=== PATIENT | male | born 1970 | race Caucasian/White ===

== ENCOUNTER 2019-01-06 20:49 | Emergency (ER) | payer OTHER, MEDICAID ==
[~2019-01-06] VITALS: Ht 177.8 cm; Wt 102.1 kg
[2019-01-06 21:04] VITALS: BP_SYST 162
[2019-01-06] MEDS ORDERED: NEOMY SULF/BACITRAC ZN/POLY 28 GM OINT..GM. TP ONE (22:15)
[2019-01-06] MEDS ORDERED: IBUPROFEN 800 MG TABLET PO ONE (22:15)
[2019-01-06] MEDS ORDERED: BACITRACIN 1 GM OINT TP ONE ×2 (22:15→22:19)
[2019-01-06] MEDS ORDERED: SULFAMETHOXAZOLE/TRIMETHOPR DS 1 TABLET PO ONE (22:15)
[2019-01-06 22:30] VITALS: BP_SYST 154
== END 2019-01-06 22:30 | disposition home or self-care (01) ==
LOC: SED 20:49
DX: L03.116 Cellulitis of left lower limb (principal); L03.115 Cellulitis of right lower limb; E11.9 Type 2 diabetes mellitus without complications; I10 Essential (primary) hypertension; Z91.013 Allergy to seafood; Z88.8 Allergy status to other drugs, medicaments and biological substances
CPT/HCPCS: 99283

== ENCOUNTER 2019-07-25 14:28 | Inpatient (IN) | payer MEDICAID, OTHER ==
[~2019-07-25] VITALS: Ht 177.8 cm; Wt 94.8 kg
[2019-07-25] MEDS ORDERED: NACL 0.9% 1,000 ML IV ONE (14:45)
[2019-07-25] MEDS ORDERED: INSULIN REGULAR, HUMAN 10 UNITS/0.1 ML INJ IVP ONE (14:45)
[2019-07-25] MEDS ORDERED: LORazepam 2 MG/ML VIAL IVP ONE ×2 (14:45→15:15)
[2019-07-25 14:52] VITALS: BP_SYST 120
[2019-07-25] MEDS ORDERED: LORazepam 2 MG/ML VIAL ONE (14:59)
[2019-07-25] MEDS ORDERED: levETIRAcetam 1,000 MG in NS 100 ML IV ONE (15:15)
[2019-07-25 15:30] LABS: BASOPHILS % (AUTO) 0.4 % (0.0-2.0); EOSINOPHILS # (AUTO) 0.1 K/uL (0.0-0.4); LYMPHOCYTES # (AUTO) 1.8 K/uL (1.0-5.5); MEAN CORPUSCULAR HGB CONC 34 % (32-36); NEUTROPHILS # (AUTO) 4.4 K/uL (1.8-7.7); WHITE BLOOD COUNT (AUTO) 6.7 K/uL (4.8-10.8)
[2019-07-25 15:35] LABS: EOSINOPHILS % (AUTO) 1.2 % (0.0-4.0); HEMATOCRIT 46.4 % (36-54); HEMOGLOBIN 15.6 g/dL (14.0-18.0); LYMPHOCYTES % (AUTO) 26.3 % (20.5-51.5); MEAN CORPUSCULAR HEMOGLOBIN 30 pg (27-31); MEAN CORPUSCULAR VOLUME 89 fL (79.0-98.0); MONOCYTES # (AUTO) 0.5 K/uL (0.0-1.0); MONOCYTES % (AUTO) 6.8 % (1.7-9.3); NEUTROPHILS % (AUTO) 65.3 % (40.0-70.0); PLATELET COUNT (AUTO) 308 K/uL (130-430); RED BLOOD CELL COUNT(AUTO) 5.21 MIL/uL (4.2-6.2); RED CELL DISTRIBUTION WIDTH 13.1 % (9.0-15.0)
[2019-07-25 15:36] LABS: CALCIUM 8.6 mg/dL (8.4-11.0); CREATININE 0.93 mg/dL (0.55-1.30); POTASSIUM 3.7 mmol/L (3.5-5.1)
[2019-07-25 15:37] LABS: INR 0.9 (0.80-1.20); PROTHROMBIN TIME 9.3 SECS (9.5-12.5)
[2019-07-25 15:38] LABS: ALBUMIN 3.3 g/dL (3.4-4.8); TOTAL BILIRUBIN 0.6 mg/dL (0.0-1.0)
[2019-07-25] MEDS ORDERED: ATOR40TA68 PO (15:43)
[2019-07-25] MEDS ORDERED: METO-540 PO (15:43)
[2019-07-25] MEDS ORDERED: METF-510 PO (15:43)
[2019-07-25] MEDS ORDERED: IBUP-2101 PO (15:43)
[2019-07-25] MEDS ORDERED: NITR0.4T47 SL (15:43)
[2019-07-25] MEDS ORDERED: PREG100C PO (15:44)
[2019-07-25] MEDS ORDERED: ASPI-524 PO (15:44)
[2019-07-25] MEDS ORDERED: LISI10TA PO (15:44)
[2019-07-25] MEDS ORDERED: SERT-131 PO (15:44)
[2019-07-25 16:22] LABS: BARBITURATE, URINE NEGATIVE (NEG <=200); BENZODIAZEPINE, URINE NEGATIVE (NEG <=150); CANNABINOID, URINE POSITIVE (NEG <=50); COCAINE, URINE NEGATIVE (NEG <=150); METHAMPHETAMINES SCREEN,URINE NEGATIVE (NEG <=500); OPIATE, URINE NEGATIVE (NEG <=100); PHENCYCLIDINE SCREEN,URINE NEGATIVE (NEG <=25); UR TRICYCLIC ANTIDEPRESSANTS NEGATIVE (NEG <=300); URINE AMPHETAMINE NEGATIVE (NEG <=500); URINE METHADONE NEGATIVE (NEG <=200); URINE OXYCODONE SCREEN NEGATIVE (NEG <=100); URINE PROPOXYPHENE SCREEN NEGATIVE (NEG <=300)
[2019-07-25 19:00] VITALS: BP_SYST 120
[2019-07-25] MEDS ORDERED: ACETAMINOPHEN 325 MG TABLET PO PRN (19:00)
[2019-07-25] MEDS ORDERED: NITROGLYCERIN 0.4 MG TAB.SUBL SL PRN (19:00)
[2019-07-25] MEDS ORDERED: ACETAMINOPHEN 325 MG TABLET PO SCH (19:00)
[2019-07-25] MEDS ORDERED: ONDANSETRON HCL 4 MG/2 ML VIAL IVP PRN (19:00)
[2019-07-25] MEDS ORDERED: HYDROcodone/ACETAMIN 5-325 MG TAB (NORCO/ VICODIN) PO PRN (19:00)
[2019-07-25 20:00] VITALS: BP_SYST 128
[2019-07-25 21:00] VITALS: BP_SYST 125
[2019-07-25] MEDS: HYDROcodone/ACETAMIN 10-325 MG TAB PO PRN (21:26)
[2019-07-25] MEDS: ATORVASTATIN 20 MG TABLET PO SCH (21:26)
[2019-07-25] MEDS: INSULIN REGULAR, HUMAN 100 UNITS/ML, 10 ML VIAL (humuLIN R) SUBCUT PRN (21:35)
[2019-07-25] MEDS: NORMAL SALINE 5 ML DISP.SYRIN IVF SCH (21:37)
[2019-07-25 22:00] VITALS: BP_SYST 127
[2019-07-25 23:00] VITALS: BP_SYST 123
[2019-07-26] VITALS (24 sets, daily range): BP systolic 96–145
[2019-07-26] MEDS: LORazepam 2 MG/ML VIAL IVP PRN ×2 (01:26→06:40)
[2019-07-26 05:52] LABS: BASOPHILS % (AUTO) 0.7 % (0.0-2.0); EOSINOPHILS # (AUTO) 0.1 K/uL (0.0-0.4); EOSINOPHILS % (AUTO) 2.2 % (0.0-4.0); HEMATOCRIT 42.5 % (36-54); HEMOGLOBIN 14.4 g/dL (14.0-18.0); LYMPHOCYTES # (AUTO) 2.4 K/uL (1.0-5.5); LYMPHOCYTES % (AUTO) 40.3 % (20.5-51.5); MEAN CORPUSCULAR HEMOGLOBIN 30 pg (27-31); MEAN CORPUSCULAR HGB CONC 34 % (32-36); MEAN CORPUSCULAR VOLUME 89 fL (79.0-98.0); MONOCYTES # (AUTO) 0.3 K/uL (0.0-1.0); MONOCYTES % (AUTO) 5.7 % (1.7-9.3); NEUTROPHILS % (AUTO) 51.1 % (40.0-70.0); PLATELET COUNT (AUTO) 255 K/uL (130-430); RED BLOOD CELL COUNT(AUTO) 4.79 MIL/uL (4.2-6.2); RED CELL DISTRIBUTION WIDTH 13.3 % (9.0-15.0); WHITE BLOOD COUNT (AUTO) 5.9 K/uL (4.8-10.8)
[2019-07-26 06:09] LABS: ALBUMIN 2.6 g/dL (3.4-4.8); CREATININE 0.63 mg/dL (0.55-1.30); PHOSPHORUS 3.7 mg/dL (2.7-4.5); POTASSIUM 3.8 mmol/L (3.5-5.1); TOTAL BILIRUBIN 0.6 mg/dL (0.0-1.0)
[2019-07-26] MEDS: INSULIN REGULAR, HUMAN 100 UNITS/ML, 10 ML VIAL (humuLIN R) SUBCUT PRN ×4 (06:31→20:31)
[2019-07-26] MEDS: HYDROcodone/ACETAMIN 10-325 MG TAB PO PRN ×2 (06:32→10:49)
[2019-07-26] MEDS: NORMAL SALINE 5 ML DISP.SYRIN IVF SCH ×3 (06:40→20:31)
[2019-07-26] MEDS ORDERED: FLU VACC QS2019-20 36MOS UP/PF 60 MCG/0.5 ML SYRINGE I.M. PRN (09:00)
[2019-07-26] MEDS: ASPIRIN 81 MG TAB.CHEW PO SCH (09:25)
[2019-07-26] MEDS: METOPROLOL SUCCINATE 25 MG TAB.SR.24H (TOPROL XL) PO SCH ×2 (09:28→20:26)
[2019-07-26] MEDS: LISINOPRIL 10 MG TABLET (PRINIVIL) PO SCH (09:28)
[2019-07-26] MEDS: SERTRALINE HCL 50 MG TABLET PO SCH (09:29)
[2019-07-26] MEDS ORDERED: GLUCOSE 15 GM GEL (in 37.5 GM TUBE) PO PRN (11:15)
[2019-07-26] MEDS ORDERED: DEXTROSE 50%-WATER 50 ML DISP.SYRIN IVP PRN (11:15)
[2019-07-26] MEDS ORDERED: D5W 1,000 ML IV PRN (11:15)
[2019-07-26] MEDS ORDERED: PREGABALIN 25 MG CAPSULE (LYRICA) PO ONE (11:15)
[2019-07-26] MEDS: MORPHINE 4 MG/ML INJ. SYRINGE IVP PRN ×2 (18:41→22:47)
[2019-07-26] MEDS: ATORVASTATIN 20 MG TABLET PO SCH (20:25)
[2019-07-27] VITALS (12 sets, daily range): BP systolic 94–129
[2019-07-27] MEDS: LORazepam 2 MG/ML VIAL IVP PRN (01:51)
[2019-07-27] MEDS: MORPHINE 4 MG/ML INJ. SYRINGE IVP PRN ×4 (05:07→22:24)
[2019-07-27] MEDS: NORMAL SALINE 5 ML DISP.SYRIN IVF SCH ×3 (05:57→20:56)
[2019-07-27 06:01] LABS: BASOPHILS # (AUTO) 0.1 K/uL (0.0-0.2); BASOPHILS % (AUTO) 0.8 % (0.0-2.0); EOSINOPHILS # (AUTO) 0.1 K/uL (0.0-0.4); EOSINOPHILS % (AUTO) 2.1 % (0.0-4.0); HEMATOCRIT 44.9 % (36-54); HEMOGLOBIN 15.2 g/dL (14.0-18.0); LYMPHOCYTES # (AUTO) 1.9 K/uL (1.0-5.5); LYMPHOCYTES % (AUTO) 26.5 % (20.5-51.5); MEAN CORPUSCULAR HEMOGLOBIN 30 pg (27-31); MEAN CORPUSCULAR HGB CONC 34 % (32-36); MEAN CORPUSCULAR VOLUME 88 fL (79.0-98.0); MONOCYTES # (AUTO) 0.4 K/uL (0.0-1.0); MONOCYTES % (AUTO) 5.7 % (1.7-9.3); NEUTROPHILS # (AUTO) 4.6 K/uL (1.8-7.7); NEUTROPHILS % (AUTO) 64.9 % (40.0-70.0); PLATELET COUNT (AUTO) 245 K/uL (130-430); RED BLOOD CELL COUNT(AUTO) 5.09 MIL/uL (4.2-6.2); RED CELL DISTRIBUTION WIDTH 13.2 % (9.0-15.0); WHITE BLOOD COUNT (AUTO) 7.1 K/uL (4.8-10.8)
[2019-07-27] MEDS: INSULIN REGULAR, HUMAN 100 UNITS/ML, 10 ML VIAL (humuLIN R) SUBCUT PRN ×4 (06:08→20:58)
[2019-07-27 06:33] LABS: ALANINE AMINOTRANSFERASE 14 U/L (12-78); ALBUMIN 2.6 g/dL (3.4-4.8); ANION GAP 8 (5-15); ASPARTATE AMINOTRANSFERASE 15 U/L (10-37); CALCIUM 8.4 mg/dL (8.4-11.0); CHLORIDE 102 mmol/L (98-107); CREATININE 0.69 mg/dL (0.55-1.30); GLUCOSE 212 mg/dL (70-99); POTASSIUM 4.2 mmol/L (3.5-5.1); SODIUM SERUM 136 mmol/L (136-145); TOTAL BILIRUBIN 0.5 mg/dL (0.0-1.0); UREA NITROGEN, BLOOD 16 mg/dL (8-21)
[2019-07-27 07:20] LABS: GFR AFRICAN AMERICAN 157 mL/min (>90)
[2019-07-27 07:38] LABS: CHOLESTEROL 147 mg/dL (<200); HDL CHOLESTEROL 41 mg/dL (>45); LDL CHOLESTEROL 80 mg/dL (<100); TRIGLYCERIDES 121 mg/dL (30-150)
[2019-07-27] MEDS: ASPIRIN 81 MG TAB.CHEW PO SCH (09:26)
[2019-07-27] MEDS: PREGABALIN 25 MG CAPSULE (LYRICA) PO SCH (09:27)
[2019-07-27] MEDS: LISINOPRIL 10 MG TABLET (PRINIVIL) PO SCH (09:28)
[2019-07-27] MEDS: METOPROLOL SUCCINATE 25 MG TAB.SR.24H (TOPROL XL) PO SCH ×2 (09:29→20:55)
[2019-07-27] MEDS: SERTRALINE HCL 50 MG TABLET PO SCH (09:29)
[2019-07-27] MEDS: HYDROcodone/ACETAMIN 10-325 MG TAB PO PRN ×2 (17:04→20:54)
[2019-07-27] MEDS: ATORVASTATIN 20 MG TABLET PO SCH (20:53)
[2019-07-27] MEDS: MUPIROCIN 1 GM OIN.PF.APP NS SCH (21:00)
[2019-07-28] MEDS: MORPHINE 4 MG/ML INJ. SYRINGE IVP PRN ×6 (02:26→21:48)
[2019-07-28] MEDS: NORMAL SALINE 5 ML DISP.SYRIN IVF SCH ×3 (05:17→21:34)
[2019-07-28] MEDS: INSULIN REGULAR, HUMAN 100 UNITS/ML, 10 ML VIAL (humuLIN R) SUBCUT PRN ×4 (06:09→21:37)
[2019-07-28 07:17] LABS: BASOPHILS % (AUTO) 0.7 % (0.0-2.0); EOSINOPHILS # (AUTO) 0.2 K/uL (0.0-0.4); EOSINOPHILS % (AUTO) 2.5 % (0.0-4.0); HEMOGLOBIN 14.5 g/dL (14.0-18.0); LYMPHOCYTES # (AUTO) 1.9 K/uL (1.0-5.5); LYMPHOCYTES % (AUTO) 29.5 % (20.5-51.5); MEAN CORPUSCULAR HEMOGLOBIN 30 pg (27-31); MEAN CORPUSCULAR HGB CONC 34 % (32-36); MEAN CORPUSCULAR VOLUME 89 fL (79.0-98.0); MONOCYTES # (AUTO) 0.4 K/uL (0.0-1.0); MONOCYTES % (AUTO) 6.4 % (1.7-9.3); NEUTROPHILS % (AUTO) 60.9 % (40.0-70.0); PLATELET COUNT (AUTO) 231 K/uL (130-430); RED BLOOD CELL COUNT(AUTO) 4.83 MIL/uL (4.2-6.2); RED CELL DISTRIBUTION WIDTH 13.2 % (9.0-15.0); WHITE BLOOD COUNT (AUTO) 6.5 K/uL (4.8-10.8)
[2019-07-28 08:01] VITALS: BP_SYST 124
[2019-07-28 08:37] LABS: ALBUMIN 2.8 g/dL (3.4-4.8); CALCIUM 8.7 mg/dL (8.4-11.0); CREATININE 0.86 mg/dL (0.55-1.30); POTASSIUM 3.9 mmol/L (3.5-5.1); TOTAL BILIRUBIN 0.6 mg/dL (0.0-1.0)
[2019-07-28] MEDS: ASPIRIN 81 MG TAB.CHEW PO SCH (08:39)
[2019-07-28] MEDS: LISINOPRIL 10 MG TABLET (PRINIVIL) PO SCH (08:41)
[2019-07-28] MEDS: METOPROLOL SUCCINATE 25 MG TAB.SR.24H (TOPROL XL) PO SCH ×2 (08:43→21:33)
[2019-07-28] MEDS: SERTRALINE HCL 50 MG TABLET PO SCH (08:44)
[2019-07-28] MEDS: PREGABALIN 25 MG CAPSULE (LYRICA) PO SCH (08:44)
[2019-07-28] MEDS: MUPIROCIN 1 GM OIN.PF.APP NS SCH ×2 (10:10→21:35)
[2019-07-28 12:34] VITALS: BP_SYST 101
[2019-07-28 16:56] VITALS: BP_SYST 109
[2019-07-28 20:00] VITALS: BP_SYST 108
[2019-07-28] MEDS: ATORVASTATIN 20 MG TABLET PO SCH (21:34)
[2019-07-29 00:52] VITALS: BP_SYST 110
[2019-07-29] MEDS: MORPHINE 4 MG/ML INJ. SYRINGE IVP PRN ×2 (02:40→07:56)
[2019-07-29 05:48] VITALS: BP_SYST 106
[2019-07-29] MEDS: NORMAL SALINE 5 ML DISP.SYRIN IVF SCH (06:15)
[2019-07-29] MEDS: INSULIN REGULAR, HUMAN 100 UNITS/ML, 10 ML VIAL (humuLIN R) SUBCUT PRN (06:18)
[2019-07-29 06:56] LABS: CALCIUM 8.5 mg/dL (8.4-11.0); CREATININE 0.7 mg/dL (0.55-1.30); POTASSIUM 3.7 mmol/L (3.5-5.1)
[2019-07-29 06:57] LABS: BASOPHILS % (AUTO) 0.5 % (0.0-2.0); EOSINOPHILS # (AUTO) 0.1 K/uL (0.0-0.4); EOSINOPHILS % (AUTO) 1.1 % (0.0-4.0); HEMATOCRIT 43.6 % (36-54); HEMOGLOBIN 14.7 g/dL (14.0-18.0); LYMPHOCYTES # (AUTO) 1.7 K/uL (1.0-5.5); LYMPHOCYTES % (AUTO) 17.8 % (20.5-51.5); MEAN CORPUSCULAR HEMOGLOBIN 30 pg (27-31); MEAN CORPUSCULAR HGB CONC 34 % (32-36); MEAN CORPUSCULAR VOLUME 89 fL (79.0-98.0); MONOCYTES # (AUTO) 0.4 K/uL (0.0-1.0); MONOCYTES % (AUTO) 4.8 % (1.7-9.3); NEUTROPHILS # (AUTO) 7.2 K/uL (1.8-7.7); NEUTROPHILS % (AUTO) 75.8 % (40.0-70.0); PLATELET COUNT (AUTO) 231 K/uL (130-430); RED BLOOD CELL COUNT(AUTO) 4.89 MIL/uL (4.2-6.2); RED CELL DISTRIBUTION WIDTH 13.2 % (9.0-15.0); WHITE BLOOD COUNT (AUTO) 9.4 K/uL (4.8-10.8)
[2019-07-29 07:30] VITALS: BP_SYST 128
[2019-07-29] MEDS: METOPROLOL SUCCINATE 25 MG TAB.SR.24H (TOPROL XL) PO SCH (09:00)
[2019-07-29] MEDS: ASPIRIN 81 MG TAB.CHEW PO SCH (09:00)
[2019-07-29] MEDS: PREGABALIN 25 MG CAPSULE (LYRICA) PO SCH (09:00)
[2019-07-29] MEDS: LISINOPRIL 10 MG TABLET (PRINIVIL) PO SCH (09:00)
[2019-07-29] MEDS: SERTRALINE HCL 50 MG TABLET PO SCH (09:00)
[2019-07-29 11:09] VITALS: BP_SYST 128
== END 2019-07-29 10:50 | disposition short-term general hospital (02) | DRG 100 ==
LOC: SED 14:28 → SIC 17:49 → SMU 07-27 14:28 → STU 07-27 16:38
PROVIDERS: ADMIT Preventive Medicine Preventive Medicine/Occupational Environmental Medicine; ATTEND Preventive Medicine Preventive Medicine/Occupational Environmental Medicine
DX: G40.409 Other generalized epilepsy and epileptic syndromes, not intractable, without status epilepticus (principal); J96.00 Acute respiratory failure, unspecified whether with hypoxia or hypercapnia; E11.00 Type 2 diabetes mellitus with hyperosmolarity without nonketotic hyperglycemic-hyperosmolar coma (NKHHC); E87.1 Hypo-osmolality and hyponatremia; I25.110 Atherosclerotic heart disease of native coronary artery with unstable angina pectoris; M94.0 Chondrocostal junction syndrome [Tietze]; I10 Essential (primary) hypertension; E11.65 Type 2 diabetes mellitus with hyperglycemia; E78.00 Pure hypercholesterolemia, unspecified; E78.5 Hyperlipidemia, unspecified; F17.210 Nicotine dependence, cigarettes, uncomplicated; I25.2 Old myocardial infarction; Z82.49 Family history of ischemic heart disease and other diseases of the circulatory system; Z83.3 Family history of diabetes mellitus; Z91.14 Patient's other noncompliance with medication regimen; Z95.5 Presence of coronary angioplasty implant and graft; Z88.8 Allergy status to other drugs, medicaments and biological substances; Z91.013 Allergy to seafood; Z79.899 Other long term (current) drug therapy; Z79.82 Long term (current) use of aspirin; Z79.84 Long term (current) use of oral hypoglycemic drugs
CPT/HCPCS: 36415; 36600; 70450-TC; 71045; 80048; 80053; 80061; 80307; 82009-TC; 82550-TC; 82803-TC; 82962; 83605; 83735-TC; 83880; 84100-TC; 84484; 85025; 85379; 85610-TC; 85730-TC; 87040-TC; 87081; 93005; 93306; 96365; 96375; 96376; 99285; G0378; G0482; J1815; J1953; J2060; J2270

== ENCOUNTER 2021-12-12 11:42 | Emergency (ER) | payer BC, OTHER ==
[~2021-12-12] VITALS: Ht 170.2 cm; Wt 78.0 kg
[~2021-12-12 11:42] MED LIST: ASPI-524 PO; ATOR40TA68 PO; LISI10TA PO; METF-518 PO; METO-540 PO; NITR0.4T47 SL; PREG100C PO; SERT-131 PO
[2021-12-12 11:44] VITALS: BP_SYST 138
--- NOTE | 2021-12-12 11:48 | NUR ---
Triaged pt and pt is in ambulance [facility]. Pt currently postictal. Pt had a seizure at his doctors office today witnessed by his doctor states that lasted 1 min tonic clonic. VSS. Pt has hx of seizures and DM. Allergic to metrodidazole and fish containing products. No trauma visible. Pupils PERRLA.
[2021-12-12] MEDS ORDERED: NACL 0.9% 1,000 ML IV ONE ×2 (12:30→13:30)
[2021-12-12] MEDS ORDERED: MORPHINE 4 MG INJ. 4 MG/ML VIAL IVP ONE ×2 (12:30→15:15)
--- NOTE | 2021-12-12 12:30 | NUR ---
Pt twitching eyes at this time, Dr Amaro notified, per Dr Amaro patient may having a pseudo seizure at this time, pt has intact ROM, will cont to monitor. Addendum: 12/12/21 at 1504 by [email or web address] no incontinence noted, no drooling noted.
--- NOTE | 2021-12-12 12:30 | NUR ---
Dr Amaro evaluating patient at bedside
[2021-12-12 12:40] LABS: BASOPHILS % (AUTO) 0.4 % (0.0-2.0); EOSINOPHILS # (AUTO) 0.1 K/uL (0.0-0.4); EOSINOPHILS % (AUTO) 1.5 % (0.0-4.0); HEMATOCRIT 41.5 % (36-54); LYMPHOCYTES # (AUTO) 1.2 K/uL (1.0-5.5); LYMPHOCYTES % (AUTO) 20.6 % (20.5-51.5); MEAN CORPUSCULAR HEMOGLOBIN 29 pg (27-31); MEAN CORPUSCULAR HGB CONC 34 % (32-36); MEAN CORPUSCULAR VOLUME 87 fL (79.0-98.0); MONOCYTES # (AUTO) 0.3 K/uL (0.0-1.0); MONOCYTES % (AUTO) 5.1 % (1.7-9.3); NEUTROPHILS # (AUTO) 4.2 K/uL (1.8-7.7); NEUTROPHILS % (AUTO) 72.4 % (40.0-70.0); PLATELET COUNT (AUTO) 249 K/uL (130-430); RED BLOOD CELL COUNT(AUTO) 4.79 MIL/uL (4.2-6.2); RED CELL DISTRIBUTION WIDTH 13.1 % (9.0-15.0); WHITE BLOOD COUNT (AUTO) 5.8 K/uL (4.8-10.8)
[2021-12-12 13:15] LABS: ANION GAP 7 (5-15); CALCIUM 8.5 mg/dL (8.4-11.0); CHLORIDE 100 mmol/L (98-107); CREATININE 1.08 mg/dL (0.55-1.30); POTASSIUM 4.1 mmol/L (3.5-5.1); SODIUM SERUM 135 mmol/L (136-145); UREA NITROGEN, BLOOD 20 mg/dL (8-21)
[2021-12-12 13:20] LABS: GFR AFRICAN AMERICAN 93 mL/min (>90)
--- NOTE | 2021-12-12 13:24 | NUR ---
Pt A&Ox4, follows instructions, skin pink and warm, cap refill <3, VSS, respirations even and unlabored..
[2021-12-12 13:28] LABS: ALANINE AMINOTRANSFERASE 13 U/L (12-78); ALBUMIN 2.7 g/dL (3.4-4.8); ASPARTATE AMINOTRANSFERASE 11 U/L (10-37); TOTAL BILIRUBIN 0.5 mg/dL (0.0-1.0)
[2021-12-12 13:29] LABS: ERYTHROCYTE SEDIMENTATION RATE 17 MM/HR (0-15)
[2021-12-12] MEDS ORDERED: VANCOMYCIN HCL 1,000 MG in NS 250 ML IV ONE (13:30)
[2021-12-12] MEDS ORDERED: VANCOMYCIN HCL 1000 MG/VIAL IV ONE (13:34)
--- NOTE | 2021-12-12 13:34 | NUR ---
Pt off the unit for ultrasound
--- NOTE | 2021-12-12 15:54 | NUR ---
Report given to Mary Alice KIMBROUGH
[2021-12-12 16:47] LABS: GLUCOSE 404 mg/dL (70-99)
--- NOTE | 2021-12-12 17:06 | NUR ---
Splint placed by Savanah peoplesoft hrms developer on left leg.
[2021-12-12 17:43] VITALS: BP_SYST 148
== END 2021-12-12 17:43 | disposition home or self-care (01) ==
LOC: SED 11:42
DX: R56.9 Unspecified convulsions (principal); F11.20 Opioid dependence, uncomplicated; G89.4 Chronic pain syndrome; I89.0 Lymphedema, not elsewhere classified; E11.9 Type 2 diabetes mellitus without complications; I10 Essential (primary) hypertension; Z88.1 Allergy status to other antibiotic agents; Z91.013 Allergy to seafood; Z79.899 Other long term (current) drug therapy
CPT/HCPCS: 99285; 96365; 29515; 93971; 96375; 96361; 96366; 80053; 85025; 85651; 85730; 87040; 84484; 36415; 73610; 83605; G0482; J3370; J2270; J7030

== ENCOUNTER 2022-07-15 21:56 | Emergency (ER) | payer BC ==
[~2022-07-15] VITALS: Ht 177.8 cm; Wt 83.9 kg
[2022-07-15 22:28] VITALS: BP_SYST 132
--- NOTE | 2022-07-15 22:30 | NUR ---
Patient triaged and placed in waiting room. VSS and patient appears in no acute distress at this time. Accompanied by SELF, awaiting available bed, and MD notified of need for MSE.
--- NOTE | 2022-07-16 | NUR ---
pT ALERT AND ORIENTED X4, vss, NO SIGNS OF ACUTE DISTRESS.
[2022-07-16 00:28] LABS: BASOPHILS % (AUTO) 0.4 % (0.0-2.0); EOSINOPHILS # (AUTO) 0.2 K/uL (0.0-0.4); EOSINOPHILS % (AUTO) 1.7 % (0.0-4.0); HEMATOCRIT 33.9 % (36-54); HEMOGLOBIN 11.3 g/dL (14.0-18.0); LYMPHOCYTES # (AUTO) 1.4 K/uL (1.0-5.5); LYMPHOCYTES % (AUTO) 13.8 % (20.5-51.5); MEAN CORPUSCULAR HEMOGLOBIN 29 pg (27-31); MEAN CORPUSCULAR HGB CONC 34 % (32-36); MEAN CORPUSCULAR VOLUME 86 fL (79.0-98.0); MONOCYTES # (AUTO) 0.7 K/uL (0.0-1.0); MONOCYTES % (AUTO) 7.3 % (1.7-9.3); NEUTROPHILS # (AUTO) 7.6 K/uL (1.8-7.7); NEUTROPHILS % (AUTO) 76.8 % (40.0-70.0); PLATELET COUNT (AUTO) 681 K/uL (130-430); RED BLOOD CELL COUNT(AUTO) 3.92 MIL/uL (4.2-6.2); RED CELL DISTRIBUTION WIDTH 14.5 % (9.0-15.0); WHITE BLOOD COUNT (AUTO) 9.9 K/uL (4.8-10.8)
[2022-07-16] MEDS ORDERED: MORPHINE 4 MG INJ. 4 MG/ML VIAL IM ONE (00:30)
[2022-07-16 00:49] LABS: CALCIUM 9.1 mg/dL (8.4-11.0); CREATININE 1.52 mg/dL (0.55-1.30)
[2022-07-16 02:02] VITALS: BP_SYST 144
--- NOTE | 2022-07-16 02:04 | NUR ---
Patient given written and verbal discharge instructions and verbalizes understanding. ER MD discussed with patient the results and treatment provided. Patient in stable condition. ID arm band removed. IV catheter removed intact and dressing applied, no active bleeding. Patient educated on pain management and to follow up with PMD. Pain Scale . Opportunity for questions provided and answered. Medication side effect fact sheet provided.
== END 2022-07-16 02:02 | disposition home or self-care (01) ==
LOC: SED 21:56
DX: Z48.01 Encounter for change or removal of surgical wound dressing (principal); E11.9 Type 2 diabetes mellitus without complications; I10 Essential (primary) hypertension; Z88.1 Allergy status to other antibiotic agents; Z91.013 Allergy to seafood; Z79.899 Other long term (current) drug therapy
CPT/HCPCS: 99284; 80048; 85025; 36415; 73620; 96372; J2270

== ENCOUNTER 2022-08-14 18:11 | Emergency (ER) | payer BC ==
[~2022-08-14] VITALS: Ht 177.8 cm; Wt 97.5 kg
[2022-08-14 18:30] VITALS: BP_SYST 111
[2022-08-14] MEDS ORDERED: LORazepam 2 MG/ML VIAL ONE (19:40)
--- NOTE | 2022-08-14 19:50 | NUR ---
Placed in room 4 . Placed on adult basic studies teacher, blood pressure machine and pulse oximeter. To gown for exam. Side rails up. Report given to LINDA KIMBROUGH(REG).
--- NOTE | 2022-08-14 19:52 | NUR ---
LATE ENTRY: REC VERBAL ORDER OF 2MG OF ATIVAN IM FROM DR. SMITH @ 194.
--- NOTE | 2022-08-14 19:52 | NUR ---
pt was waiting in lobby. pt had multiple seizures. placed pt on monitor. and placed pt on side. md at bedside
--- NOTE | 2022-08-14 19:52 | NUR ---
pt right foot was hit by door in phlebotomy station per the patient.
--- NOTE | 2022-08-14 19:54 | NUR ---
pt is alert and speaking. pt came in for right foot pain. hx of amp. hx of pseudo seizures heart shunts and htn
[2022-08-14] MEDS ORDERED: LORazepam 2 MG/ML VIAL IM ONE (20:00)
[2022-08-14 20:24] LABS: BASOPHILS # (AUTO) 0.1 K/uL (0.0-0.2); BASOPHILS % (AUTO) 0.8 % (0.0-2.0); EOSINOPHILS # (AUTO) 0.3 K/uL (0.0-0.4); EOSINOPHILS % (AUTO) 3.3 % (0.0-4.0); HEMATOCRIT 33.8 % (36-54); HEMOGLOBIN 11.2 g/dL (14.0-18.0); LYMPHOCYTES % (AUTO) 22.3 % (20.5-51.5); MEAN CORPUSCULAR HEMOGLOBIN 28 pg (27-31); MEAN CORPUSCULAR HGB CONC 33 % (32-36); MEAN CORPUSCULAR VOLUME 85 fL (79.0-98.0); MONOCYTES # (AUTO) 0.6 K/uL (0.0-1.0); MONOCYTES % (AUTO) 7.2 % (1.7-9.3); NEUTROPHILS # (AUTO) 5.9 K/uL (1.8-7.7); NEUTROPHILS % (AUTO) 66.4 % (40.0-70.0); PLATELET COUNT (AUTO) 340 K/uL (130-430); RED BLOOD CELL COUNT(AUTO) 3.97 MIL/uL (4.2-6.2); RED CELL DISTRIBUTION WIDTH 14.3 % (9.0-15.0); WHITE BLOOD COUNT (AUTO) 8.9 K/uL (4.8-10.8)
--- NOTE | 2022-08-14 20:37 | NUR ---
pt c/o right foot pain. md is aware and notified pain 03/06
[2022-08-14] MEDS ORDERED: HYDROcodone/ACETAMIN 10-325 MG TAB PO ONE (20:45)
[2022-08-14 20:46] LABS: CALCIUM 8.7 mg/dL (8.4-11.0); CREATININE 1.35 mg/dL (0.55-1.30)
[2022-08-14 20:50] LABS: ALBUMIN 2.6 g/dL (3.4-4.8); TOTAL BILIRUBIN 0.3 mg/dL (0.0-1.0)
[2022-08-14] MEDS ORDERED: HYDR-3927 PO (20:58)
--- NOTE | 2022-08-14 21:00 | NUR ---
pt requesting to speak to sudhir sup. notified sudhir sup
--- NOTE | 2022-08-14 21:15 | NUR ---
Pt being discharge and wont leave the er bed,Pt refused the [place] medication ordered by Dr Buchanan.States he wants stronger pain medication.Dr Buchanan made aware.No change in order.Pt requesting to speak to House Sup .Pt was informed HS was notified.Per primary nurse Kemi pt refused to remove his IV access,refused wound dressing.Pt being hostile to primary nurse.Security at the bedside. was notified.
--- NOTE | 2022-08-14 21:16 | NUR ---
pt requesting to speak to sudhir gaming. sudhir gaming notified and will get to him when she can.
--- NOTE | 2022-08-14 21:43 | NUR ---
pt is d/c. pt insisted on recording me. i informed patient he is not allowed to and i am not allowing fr him to do so. security was called and at bedside. charge nurse came to bedside to talk to patient. pt refused norco pain pill. pt asked again if he wanted pain pill patient said no. informed pt i will document refusal of med. pt informed me he is not refusing. asked patient again if he wanted pain pill patient stated no. informed patient i will do drssing change on right foot. patient refused. informed patient i will need to take iv out. pt is reusing for me to take iv out. [facility] was called. awaiting for arrival. house sup was requested again.
--- NOTE | 2022-08-14 21:56 | NUR ---
pt now states he will let another nurse take out iv.
--- NOTE | 2022-08-14 22:02 | NUR ---
house sup at bedside talking to patient
--- NOTE | 2022-08-14 22:08 | NUR ---
sudhir gaming talked to patient. pt is refusing a gown, and a shirt. pt states he doesnt want anyone elses clothing. pt clothing was cut due to pt having a seizure.
--- NOTE | 2022-08-14 22:13 | NUR ---
pt is ambulatory with steady gait using walker
[2022-08-14 22:16] VITALS: BP_SYST 132
== END 2022-08-14 22:17 | disposition home or self-care (01) ==
LOC: SED 18:11
DX: Z98.890 Other specified postprocedural states (principal); R56.9 Unspecified convulsions; E11.9 Type 2 diabetes mellitus without complications; I10 Essential (primary) hypertension; Z88.1 Allergy status to other antibiotic agents; Z91.013 Allergy to seafood; Z79.899 Other long term (current) drug therapy
CPT/HCPCS: 99284; 80053; 85025; 86140; 36415; 73630; 96372; 83605; J2060